=== PATIENT | male | born 1965 | race African-American/Black ===

== ENCOUNTER 2025-06-24 12:07 | Emergency (ER) | payer OTHER ==
[~2025-06-24] VITALS: Ht 177.8 cm; Wt 85.0 kg
[2025-06-24 12:13] VITALS: O2SAT 100
[2025-06-24] MEDS: SODIUM CHLORIDE 0.9% 1,000 ML IV ONE (12:42)
[2025-06-24 12:46] LABS: BASOPHILS % 0.2 % (0.0-2.0); EOSINOPHILS % 4.2 % (0.0-5.0); HEMATOCRIT. 37.6 % (42.0-52.0); HEMOGLOBIN. 12.4 g/dL (14.0-18.0); LYMPHOCYTES % 17.2 % (20.0-50.0); MEAN PLATELET VOLUME 7.4 fl (7.4-10.4); MONOCYTES % 9.3 % (2.0-8.0); NEUTROPHILS % 69.1 % (40.0-76.0); PLATELET 204 x1000/uL (130-400); RED BLOOD CELL COUNT 4.32 mill/uL (4.7-6.1); RED CELL DISTRIBUTION WIDTH 11.9 % (11.6-14.6)
[2025-06-24 12:57] LABS: INR 1.0
[2025-06-24 13:01] LABS: CREATININE 1.1 mg/dL (0.6-1.3); TROPONIN I HIGH SENSITIVITY < 4 ng/L (3.0-53); UREA NITROGEN BLOOD 13 mg/dL (9-23)
[2025-06-24 13:03] LABS: ASPARTATE AMINOTRANSFERASE 20 IU/L (<34); BILIRUBIN DIRECT < 0.1 mg/dL (<=3.0); BILIRUBIN TOTAL 0.4 mg/dL (0.1-1.0); PROTEIN TOTAL 6.3 g/dL (6.0-8.3)
[2025-06-24 14:01] VITALS: BP 108/66; PULSE 55; RESP 11; TEMP 36.9; O2SAT 100
== END 2025-06-24 16:35 | disposition home or self-care (01) ==
LOC: ER 14:19 → CANBEDREQ 15:32 → ER 16:35
DX: R55 Syncope and collapse (principal); R51.9 Headache, unspecified; M54.9 Dorsalgia, unspecified
CPT/HCPCS: 99285; 96360; 70450; 71045; 80076; 80048; 83690; 85025; 85610; 84484; 36415; 93005; J7030